=== PATIENT | female | born 1995 | race Two or more races ===

== ENCOUNTER 2019-09-29 09:13 | Observation (INO) | payer MEDICAID ==
[~2019-09-29] VITALS: Ht 160 cm; Wt 77.6 kg
[~2019-09-29 09:13] MED LIST: PREN27TA7 PO
== END 2019-09-29 10:12 | disposition home or self-care (01) | DRG 566 ==
LOC: LDRP 09:13
PROVIDERS: ADMIT Specialist; ATTEND Specialist
DX: O40.3XX0 Polyhydramnios, third trimester, not applicable or unspecified (principal); Z3A.33 33 weeks gestation of pregnancy
CPT/HCPCS: 59025; 76818; 81002; G0378

== ENCOUNTER 2019-10-03 09:24 | Observation (INO) | payer MEDICAID | END 2019-10-03 10:20 | disposition home or self-care (01) | DRG 566 | LOC: LDRP 09:24 | PROVIDERS: ADMIT Obstetrics & Gynecology; ATTEND Obstetrics & Gynecology | DX: O40.3XX0 Polyhydramnios, third trimester, not applicable or unspecified (principal); Z3A.33 33 weeks gestation of pregnancy | CPT/HCPCS: 59025; 76818; 81002; G0378 ==

== ENCOUNTER 2019-10-10 10:11 | Observation (INO) | payer MEDICAID | END 2019-10-10 11:07 | disposition home or self-care (01) | DRG 566 | LOC: LDRP 10:11 | PROVIDERS: ADMIT Specialist; ATTEND Specialist | DX: O40.3XX0 Polyhydramnios, third trimester, not applicable or unspecified (principal); Z3A.34 34 weeks gestation of pregnancy | CPT/HCPCS: 76818; 81002; G0378; 59025 ==

== ENCOUNTER 2019-11-17 10:05 | Observation (INO) | payer MEDICAID | END 2019-11-17 11:40 | disposition home or self-care (01) | DRG 566 | LOC: LDRP 10:05 | PROVIDERS: ADMIT Obstetrics & Gynecology; ATTEND Obstetrics & Gynecology | DX: O48.0 Post-term pregnancy (principal); Z3A.40 40 weeks gestation of pregnancy | CPT/HCPCS: 59025; 76818; 81002; G0378 ==

== ENCOUNTER 2019-11-19 11:10 | Observation (INO) | payer MEDICAID | END 2019-11-19 12:25 | disposition home or self-care (01) | DRG 566 | LOC: LDRP 11:10 | PROVIDERS: ADMIT Obstetrics & Gynecology; ATTEND Obstetrics & Gynecology | DX: O48.0 Post-term pregnancy (principal); Z3A.40 40 weeks gestation of pregnancy | CPT/HCPCS: 76818; 81002; G0378 ==

== ENCOUNTER 2019-11-21 09:52 | Observation (INO) | payer MEDICAID ==
[2019-11-21 11:55] LABS: Basophils # (auto) 0 10 ^3/uL (0-0.2); Basophils % (auto) 0.2 % (0.0-2.0); Eosinophils # (auto) 0.1 10 ^3/uL (0-0.8); Eosinophils % (auto) 0.6 % (0.0-7.0); Hematocrit 34.9 % (36.0-46.0); Hemoglobin 11.8 g/dL (12.2-16.2); Lymphocytes # (auto) 1.7 10 ^3/uL (0.4-5.4); Lymphocytes % (auto) 20.5 % (10.0-50.0); Mean Corpuscular Hemoglobin 28.3 pg (28.0-32.0); Mean Corpuscular Hgb Conc. 33.9 g/dL (32.0-36.0); Mean Corpuscular Volume 83.7 fL (80.0-100.0); Monocytes # (auto) 0.5 10 ^3/uL (0-1.3); Monocytes % (auto) 6.2 % (0.0-12.0); Neutrophils # (auto) 6.2 10 ^3/uL (1.6-8.6); Neutrophils % (auto) 72.5 % (37.0-80.0); Nucleated Red Blood Cells % 0.1 %; Platelet Count (auto) 198 10^3/uL (140-450); Red Blood Cells 4.17 10^6/uL (4.0-5.20); Red Cell Distribution Width 16.4 % (11.8-14.3); White Blood Cell 8.5 10^3/uL (4.4-10.8)
[2019-11-21 11:58] LABS: Urine Bacteria NONE SEEN /hpf (None Seen); Urine Blood 2+ /uL (Negative); Urine Mucus FEW (None Seen); Urine Specific Gravity 1.028 (1.001-1.035); Urine WBC 2 /hpf (0 - 5)
[2019-11-21 12:04] LABS: INR 0.95 (0.9-1.15); Partial Thromboplastin Time 30.5 sec (23.64-32.05)
[2019-11-21 12:05] LABS: Albumin 2.5 g/dL (3.4-5.0); Calcium 8.2 mg/dL (8.5-10.1); Potassium 3.5 mmol/L (3.5-5.1)
[2019-11-21 12:13] LABS: BUN/Creatinine Ratio 11.3; Bilirubin, Total 0.2 mg/dL (0.2-1.0); Total Protein 6.5 g/dL (6.4-8.2)
[2019-11-22 05:09] LABS: RPR Non Reactive (Non Reactive)
== END 2019-11-21 12:10 | disposition home or self-care (01) | DRG 566 ==
LOC: LDRP 09:52
PROVIDERS: ADMIT Obstetrics & Gynecology; ATTEND Obstetrics & Gynecology
DX: O48.0 Post-term pregnancy (principal); Z3A.40 40 weeks gestation of pregnancy
CPT/HCPCS: 36415; 76818; 80053; 81001; 81002; 84112; 85025; 85610; 85730; 86592; 86850; 86900; 86901; G0378

== ENCOUNTER 2019-11-21 19:00 | Inpatient (IN) | payer MEDICAID ==
[~2019-11-21] VITALS: Ht 160 cm; Wt 83.5 kg
[2019-11-21] MEDS ORDERED: PHISODERM TOP SOLN 240ML BTL TOP PRN (19:15)
[2019-11-21] MEDS ORDERED: METHYLERGONOVINE MALEATE 0.2 MG/ML AMP IM PRN (19:15)
[2019-11-21] MEDS ORDERED: DERMOPLAST 60ML BOTTLE TOP PRN (19:15)
[2019-11-21] MEDS ORDERED: LIDOCAINE 2%HCL (LOCAL ANESTH.) INJ 20ML MDV ID ONE (19:15)
[2019-11-21] MEDS ORDERED: WITCH HAZEL-GLYCERIN PAD TOP PRN (19:15)
[2019-11-21] MEDS: LACTATED RINGER'S 1,000 ML IV SCH (19:21)
[2019-11-21] MEDS ORDERED: miSOPROStol 50 MCG per PRE-CUT 1/2 TAB PO PRN (20:00)
[2019-11-22] MEDS: LACT. RINGERS/OXYTOCIN 20UNITS 1,000 ML IV SCH ×2 (05:56→10:31)
[2019-11-22] MEDS: LACTATED RINGER'S 1,000 ML IV SCH (07:03)
[2019-11-22] MEDS ORDERED: NALBUPHINE HCL 10 MG/1ml INJECTION IV PRN (07:45)
[2019-11-22] MEDS ORDERED: BUTORPHANOL TARTRATE 2 MG/1 ML VIAL IV PRN (08:00)
--- NOTE | 2019-11-22 11:30 | NUR ---
New Beginnings Guide given to PT. Informed BF info begins on page 32.
--- NOTE | 2019-11-22 11:30 | NUR ---
report received from gee kulkarni rn
--- NOTE | 2019-11-22 11:30 | NUR ---
report received from gee kulkarni
[2019-11-22 11:58] VITALS: BP 116/58
[2019-11-22] MEDS ORDERED: LACT. RINGERS/OXYTOCIN 20UNITS 500 ML IV ONE (12:24)
[2019-11-22] MEDS: ACETAMINOPHEN 325 MG TAB PO PRN ×2 (12:40→17:57)
[2019-11-22 14:00] VITALS: BP 103/55
[2019-11-22] MEDS: IBUPROFEN 600 MG TAB PO PRN ×2 (15:08→23:43)
[2019-11-22 15:10] VITALS: BP 105/55
[2019-11-22 18:46] VITALS: BP 106/62
[2019-11-22 23:10] VITALS: BP 105/59
--- NOTE | 2019-11-23 01:20 | NUR ---
IV removal 20g IV to right wrist discontinued with clean sterile technique, catheter fully intact. Pressure dressing applied to site. Patient tolerated well.
--- NOTE | 2019-11-23 01:22 | NUR ---
Bottle-feeding Education: Patient encouraged to breastfeed. Benefits of and the risk of providing formula to was discussed. Patient verbalized understanding of the benefits and is aware of risk and insists on bottle-feeding. Formula provided and instruction on formula preparation from the New Beginning booklet reviewed with patient.
[2019-11-23 03:04] VITALS: BP 95/54
[2019-11-23] MEDS: IBUPROFEN 600 MG TAB PO PRN (05:53)
[2019-11-23 06:35] VITALS: BP 97/56
[2019-11-23 10:53] VITALS: BP 110/62
[2019-11-23 13:00] VITALS: BP 110/62
--- NOTE | 2019-11-23 13:07 | NUR ---
Discharge: Discharge instructions given as ordered. Pt encouraged to follow up with [facility] as instructed. All questions and concerns addressed. Patient verbalized understanding. Medication reconciliation completed and copy given to patient. All required/requested vaccines given and copies of vaccinations given to patient. Patient encouraged to prepare to depart unit.
--- NOTE | 2019-11-23 13:20 | NUR ---
Discharge: ID bands matched and ID verification form signed and witnessed. One ID band was removed and placed in chart. Infant taken to vehicle, accompanied by staff, mother of baby, and family member along with all personal belongings. secured in rear-facing car seat by parent and verified by staff. No distress or adverse changes in status since initial assessment was noted at time of departure.
--- NOTE | 2019-11-23 13:20 | NUR ---
Discharge: Patient taken to vehicle via wheelchair with all personal belongings, accompanied by staff and family member. No distress noted at time of departure, no adverse changes in status since initial assessment.
== END 2019-11-23 13:20 | disposition home or self-care (01) | DRG 560 ==
LOC: LDRP 19:00
PROVIDERS: ADMIT Obstetrics & Gynecology; ATTEND Obstetrics & Gynecology
PROC: 10E0XZZ Delivery of Products of Conception, External Approach (ICD-10-PCS; principal; 2019-11-21)
PROC: 0HQ9XZZ Repair Perineum Skin, External Approach (ICD-10-PCS; 2019-11-21)
DX: O70.0 First degree perineal laceration during delivery (principal); Z11.59 Encounter for screening for other viral diseases; Z37.0 Single live birth; Z3A.37 37 weeks gestation of pregnancy
CPT/HCPCS: 59025; 59409; 81002; 96365; 96366; 96372; G0378; J2590